=== PATIENT | male | born 1995 | race Caucasian/White ===

== ENCOUNTER 2018-10-11 10:26 | Emergency (ER) | payer BC ==
[2018-10-11] MEDS ORDERED: NS 1,000 ML IV ONE (11:43)
--- NOTE | 2018-10-11 11:43 | EDPHY ---
H & P Stated Complaint: R lower abd pain hematuria x 2 days, chills Source: Patient Exam Limitations: No limitations - Medical/Surgical History Hx Asthma: No Hx Chronic Respiratory Disease: No Hx Diabetes: No Hx Cardiac Disease: No Hx Renal Disease: No Hx Cirrhosis: No Hx Alcoholism: No Hx HIV/AIDS: No Hx Splenectomy or Spleen Trauma: No Other PMH: denies - Social History Smoking Status: Never smoked Time Seen by Provider: 10/11/18 11:43 HPI/ROS: HPI: This is a 23-year-old male who presents with Chief Complaint: R lower abd pain hematuria x 2 days, chills Location: Right flank, right lower quadrant abdomen Quality: Pain Duration: 2 days Signs and Symptoms: no fever, + chills, + nausea, no vomiting, no hematemesis, no blood in stool, no abdominal bloating, no diarrhea, no back pain, no urinary symptoms, no testicular/groin pain, no indigestion, no chest pain, no shortness of breath Timing: Acute, constant Severity: [id number] Context: Patient reports he developed sudden onset of right flank and right lower quadrant pain 2 nights ago that is accompanied by chills. He has noted some blood in his urine. He has mild nausea. Denies fever, vomiting, testicular groin pain, penile discharge. No history kidney stones. Eating and drinking without difficulty. 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 Modifying Factors: None Comment: ROS: A comprehensive 10 system review of systems is otherwise negative aside from elements mentioned in the history of present illness. MEDICAL/SURGICAL/SOCIAL HISTORY: Medical history: Generally healthy. Does not take any regular medications. Surgical history: Denies Social history: Employed. Never smoked. Family history noncontributory. CONSTITUTIONAL: Extremely polite and cooperative nontoxic-appearing young adult white male, awake and alert, no obvious distress HEENT: Atraumatic and normocephalic, PERRL, EOMI. Nares patent; no rhinorrhea; no nasal mucosal edema. Tympanic membranes clear. Oropharynx clear, no exudate and moist pink mucosa. Airway patent. No lymphadenopathy. No meningismus. Cardiovascular: Normal S1/S2, regular rate, regular rhythm, without murmur rub or gallop. PULMONARY/CHEST: Symmetrical and nontender. Clear to auscultation bilaterally. Good air movement. No accessory muscle usage. ABDOMEN: Soft, nondistended, moderate right lower quadrant tenderness, no rebound, no guarding, no peritoneal signs, no masses or organomegaly. No CVAT. Male : circumcised penis, bilateral descended testes, no testicular swelling, no testicular masses, no penile discharge, no lesions, negative Prehn's sign. EXTREMITIES: 2/2 pulses, strength 5/5, no deformities, no clubbing, no cyanosis or edema. NEUROLOGICAL: no focal neuro deficits. GCS 15. SKIN: Warm and dry, no erythema. no rash. Good capillary refill. (Aracelis Ferraro) Constitutional: Initial Vital Signs Temperature (C) 37.0 C 10/11/18 10:35 Heart Rate 76 10/11/18 10:35 Respiratory Rate 16 10/11/18 10:35 Blood Pressure 139/90 H 10/11/18 10:35 O2 Sat (%) 97 10/11/18 10:35 O2 Delivery Mode Room Air Allergies/Adverse Reactions: No Known Allergies Allergy (Unverified 10/11/18 10:35) Home Medications: Medication Instructions Recorded NK [No Known Home Meds] 10/11/18 Medical Decision Making - Diagnostics Imaging Results: Imaging Impressions Abdomen CT 10/11/18 11:56 Impression: 1. Possible mild mesenteric lymphadenitis. 2. No CT evidence of appendicitis, abscess or bowel obstruction. Findings and recommendations discussed with Emergency Department physician, Aracelis Ferraro PA-C at 1306 hour, 10/11/2018. Final report concurs with initial preliminary interpretation. ED Course/Re-evaluation: Vital signs reviewed and stable upon arrival. No systemic signs. IV access, laboratory studies, urinalysis, CT abdomen pelvis scan with contrast ordered Given 1 L normal saline, IV promethazine 12.5 mg, IV Toradol 30 mg 1233: Urinalysis shows 2+ blood, 5-10 RBCs; no signs of infection 1235: Laboratory studies reviewed. No signs of leukocytosis/anemia/platelet dysfunction/KATHY/elevated LFTs/electrolyte imbalance/pancreatitis. 1308: Called by radiologist, Dr. Bishop, who advised CT abdomen and pelvis scan shows no signs of appendicitis, no obstruction, no diverticulitis, no incarcerated hernia. + mild mesenteric adenitis. No secondary signs for ureteral stranding indicating passage of stone. 1320: Reassessed patient who reports no abdominal pain. Tolerating p.o. Without difficulty. Given referral to [facility] to establish care as well as Urology for repeat urinalysis for interval change of microscopic hematuria. This patient was seen under the supervision of my secondary supervising physician. I evaluated care for this patient with attending. (Aracelis Ferraro) The patient was evaluated and managed by the physician corporate legal assistant. I have reviewed this chart and I agree with the findings and plan of care as documented , as indicated by my signature. I am the secondary supervising physician. ( Mis Flores) Differential Diagnosis: Abdominal pain including but not limited to appendicitis, cholecystitis, gastritis and urinary tract infection. (Aracelis Ferraro) - Data Points Laboratory Results: Laboratory Results 10/11/18 11:05 10/11/18 11:05 10/11/18 10/11/18 10/11/18 11:05 11:05 10:15 WBC 6.04 10^3/uL 10^3/uL (3.80-9.50) RBC 5.64 10^6/uL 10^6/uL (4.40-6.38) Hgb 17.5 g/dL g/dL (13.7-17.5) Hct 50.7 % % (40.0-51.0) MCV 89.9 fL fL (81.5-99.8) MCH 31.0 pg pg (27.9-34.1) MCHC 34.5 g/dL g/dL (32.4-36.7) RDW 12.3 % % (11.5-15.2) Plt Count 211 10^3/uL 10^3/uL (150-400) MPV 10.2 fL fL (8.7-11.7) Neut % (Auto) 56.4 % % (39.3-74.2) Lymph % (Auto) 31.1 % % (15.0-45.0) [place] % (Auto) 10.1 % % (4.5-13.0) Eos % (Auto) 1.2 % % (0.6-7.6) Baso % (Auto) 0.7 % % (0.3-1.7) Nucleat RBC Rel Count 0.0 % % (0.0-0.2) Absolute Neuts (auto) 3.41 10^3/uL 10^3/uL (1.70-6.50) Absolute Lymphs (auto) 1.88 10^3/uL 10^3/uL (1.00-3.00) Absolute Monos (auto) 0.61 10^3/uL 10^3/uL (0.30-0.80) Absolute Eos (auto) 0.07 10^3/uL 10^3/uL (0.03-0.40) Absolute Basos (auto) 0.04 10^3/uL 10^3/uL (0.02-0.10) Absolute Nucleated RBC 0.00 10^3/uL 10^3/uL (0-0.01) Immature Gran % 0.5 % % (0.0-1.1) Immature Gran # 0.03 10^3/uL 10^3/uL (0.00-0.10) Sodium 138 mEq/L mEq/L (135-145) Potassium 4.3 mEq/L mEq/L (3.5-5.2) Chloride 103 mEq/L mEq/L (97-110) Carbon Dioxide 25 mEq/l mEq/l (22-31) Anion Gap 10 mEq/L mEq/L (6-14) BUN 12 mg/dL mg/dL (7-23) Creatinine 1.0 mg/dL mg/dL (0.7-1.3) Estimated GFR > 60 Glucose 96 mg/dL mg/dL (70-100) Calcium 9.9 mg/dL mg/dL (8.5-10.4) Total Bilirubin 0.4 mg/dL mg/dL (0.1-1.4) Conjugated Bilirubin 0.1 mg/dL mg/dL (0.0-0.5) Unconjugated Bilirubin 0.3 mg/dL mg/dL (0.0-1.1) AST 25 IU/L IU/L (17-59) ALT 25 IU/L IU/L (21-72) Alkaline Phosphatase 74 IU/L IU/L (38-126) Total Protein 8.0 g/dL g/dL (6.3-8.2) Albumin 4.9 g/dL g/dL (3.5-5.0) Lipase 40 IU/L IU/L (23-300) Urine Color YELLOW Urine Appearance HAZY Urine pH 5.0 (5.0-7.5) Ur Specific [place] 1.021 (1.002-1.030) Urine Protein NEGATIVE (NEGATIVE) Urine Ketones NEGATIVE (NEGATIVE) Urine Blood 2+ H (NEGATIVE) Urine Nitrate NEGATIVE (NEGATIVE) Urine Bilirubin NEGATIVE (NEGATIVE) Urine Urobilinogen NEGATIVE EU EU (0.2-1.0) Ur Leukocyte Esterase NEGATIVE (NEGATIVE) Urine RBC 5-10 /hpf H /hpf (0-3) Urine WBC 1-3 /hpf /hpf (0-3) Ur Epithelial Cells NONE SEEN /lpf /lpf (NONE-1+) Urine Mucus TRACE /lpf /lpf (NONE-1+) Urine Glucose NEGATIVE (NEGATIVE) Medications Given: Discontinued Medications Sodium Chloride (Ns) 1,000 mls @ 0 mls/hr IV EDNOW ONE; Wide Open PRN Reason: Protocol Stop: 10/11/18 11:44 Last Admin: 10/11/18 11:51 Dose: 1,000 mls Ketorolac Tromethamine (Toradol) 30 mg IVP EDNOW ONE Stop: 10/11/18 11:58 Last Admin: 10/11/18 12:05 Dose: 30 mg Promethazine HCl (Phenergan) 12.5 mg IVP ONCE ONE Stop: 10/11/18 11:58 Last Admin: 10/11/18 12:06 Dose: 12.5 mg Departure - Departure Disposition: Home, Routine, Self-Care Clinical Impression: Microscopic hematuria, Nonspecific mesenteric adenitis Condition: Good Instructions: Hematuria (ED), Mesenteric Adenitis (ED) Additional Instructions: Consume a minimum of 8-10 glasses of water or electrolyte fluid replacement drinks that include Gatorade, Powerade, Pedialyte. [facility] Follow-up with Urology for further evaluation of blood in urine. Referrals: [facility],. [Clinic] - As per Instructions Fab Rollins MD [Medical Doctor] - As per Instructions
[2018-10-11 11:51] LABS: PLATELET COUNT 211 10^3/uL (150-400)
[2018-10-11] MEDS ORDERED: KETOROLAC 30 MG/1 ML SDV IVP ONE (11:57)
[2018-10-11] MEDS ORDERED: PROMETHAZINE HCL 25 MG/ML INJ IVP ONE (11:57)
[2018-10-11] MEDS ORDERED: IOPAMIDOL (ISOVUE-300) 100 ML BTL ONE (12:05)
[2018-10-11 13:39] VITALS: BP 136/88
== END 2018-10-11 13:38 | disposition home or self-care (01) ==
DX: R31.29 Other microscopic hematuria (principal); I88.0 Nonspecific mesenteric lymphadenitis
CPT/HCPCS: 96374; J1885; J2550; Q9967